=== PATIENT | female | born 1995 | race Caucasian/White ===

== ENCOUNTER 2022-08-21 17:43 | Emergency (ER) | payer OTHER, SELFPAY ==
--- NOTE | ~2022-08-21 | US_ITS ---
EXAMINATION: US right upper quadrant DATE: 08/21/2022 23:54 INDICATION: Right upper quadrant abdominal pain. TECHNIQUE: Multiple grayscale and Doppler ultrasound images of the abdomen were obtained. COMPARISON: None FINDINGS: The pancreatic body is normal in appearance. The pancreatic head and tail are not clearly visualized . Liver has normal echogenicity and contour, with a smooth surface. No liver lesion identified. No in trahepatic biliary duct dilation suspected. Portal venous flow was seen in the hepatopetal, normal di rection and has normal Doppler waveform. The gallbladder is normal in appearance with no wall thicken ing. There is no cholelithiasis. The common bile duct measures 4 mm, which is normal. Sonographic Mu rphy sign was reported as positive by the glass production machine operator. IMPRESSION: 1. Positive sonographic Rowland's. Otherwise normal right upper quadrant ultrasound with no gallbladde r wall thickening or gallstones to more specifically suggest acute cholecystitis. If there is continu ed clinical concern for acute cholecystitis could consider HIDA scan for further evaluation. Reviewed, dictated and finalized at location [facility]. RAL LAW CLERK IMPRESSION: 1. Positive sonographic Rowland's. Otherwise normal right upper quadrant ultraso und with no gallbladder wall thickening or gallstones to more specifically sugg est acute cholecystitis. If there is continued clinical concern for acute john cystitis could consider HIDA scan for further evaluation.
[2022-08-21 18:23] VITALS: BP 138/94; PULSE 106; RESP 20; TEMP 37.6; O2SAT 100
[2022-08-21 18:39] LABS: Basophils Percent Auto 0.4 % (0.2-1.2); Chloride 104 mmol/L (98-107); Eosinophils Absolute Auto 0.1 K/mm3 (0-0.3); Eosinophils Percent Auto 0.7 % (0-4.4); Hematocrit 39.2 % (37.0-47.0); Hemoglobin 12.7 g/dL (12.0-15.0); Immature Granulocyte Absolute 0.02 K/mm3 (0.00-0.031); Immature Granulocyte Percent A 0.3 % (0-0.5); Lymphocytes Absolute Auto 1.02 K/mm3 (0.9-3.2); Lymphocytes Percent Auto 14.3 % (18.3-44.2); Mean Corpuscular HGB Conc 32.4 g/dl (32-36); Mean Corpuscular Hemoglobin 28.5 pg (26-34); Mean Corpuscular Volume 87.9 fl (80-100); Mean Platelet Volume 8.3 fl (7.4-10.4); Monocytes Absolute Auto 0.6 K/mm3 (0.1-0.6); Monocytes Percent Auto 8.6 % (2.6-8.5); Neutrophils Absolute Auto 5.4 K/mm3 (1.3-6.7); Neutrophils Percent Auto 75.7 % (45.5-73.1); Platelet Count Result 405 k/mm3 (150-375); Red Blood Count 4.46 M/mm3 (4.2-5.4); Red Cell Distribution Width 14.6 % (11.5-14.5); White Blood Count 7.1 K/mm3 (4.5-10.0)
[2022-08-21 18:44] LABS: Alanine Aminotransferase 26 U/L (6-35); Albumin Level 4.4 g/dL (3.5-5.1); Alkaline Phosphatase 100 U/L (38-126); Anion Gap 5 mmol/L (8-16); Aspartate Amino Transferase 34 U/L (14-36); Bilirubin,Total 0.4 mg/dL (0.2-1.3); Blood Urea Nitrogen 9 mg/dL (7-17); Calcium 8.5 mg/dL (8.4-10.2); Carbon Dioxide 25 mmol/L (22-30); Estimated CRCL calculation 160 ml/min; Estimated Glomerular Filt Rate > 60; Glucose 91 mg/dL (65-110); Lipase 55 U/L (23-300); Sodium 134 mmol/L (137-145)
[2022-08-21 18:45] LABS: Appearance Urine Slightly Cloudy (Clear); Bilirubin Urine Negative (Negative); Blood Urine Trace-intact (Negative); Color Urine Yellow (Yellow); Glucose Urine UA Negative (Negative); Ketones Urine Negative (Negative); Leukocyte Esterase Ur Negative LEU/UL (Negative); Nitrate Urine Negative (Negative); Protein Urine Negative (Negative); Specific Grav Ur 1.025 (1.001-1.035); Urobilinogen Urine 0.2 mg/dL (<2.0); pH Urine 5.5 (5.0-9.0)
[2022-08-21 19:18] LABS: Mucus Urine Rare /lpf; Squamous Epithelial Cell Urine Occasional /hpf (Few); WBC Urine 0-3 /hpf
[2022-08-21 19:20] LABS: Add Urine Microscopic? YES
[2022-08-21 22:27] VITALS: BP 154/92; PULSE 112; RESP 14; TEMP 37.3; O2SAT 100
--- NOTE | 2022-08-21 23:55 | ED.ABDPAIN ---
HPI - Abdominal Pain General Chief Complaint: Abdominal Pain Stated Complaint: abdominal pain Time Seen by Provider: 08/21/22 22:17 Source: patient Mode of arrival: ambulatory Limitations: no limitations History of Present Illness HPI narrative: This is a 26-year-old female who presents for chief complaint of abdominal pain onset this morning soon after she woke up. States the pain is located in the epigastric area and occasionally radiates inferiorly. Describes the pain as stabbing at its worst it is an 8 out of 10 pain. States she ate a kind bar for breakfast but does not specifically associate the pain with eating. States she was nauseous this morning but did not throw up. Reports regular bowel movements. Denies any urinary symptoms. No history of abdominal surgery. Denies fevers, chills Previously seen in urgent care prior to arrival in the ED who felt that she needed further work-up here. Related Data Allergies Allergy/AdvReac Type Severity Reaction Status Date / Time No Known Allergies Allergy Verified 08/21/22 22:27 Review of Systems Review of Systems: CONSTITUTIONAL: Denies fever, chills, or sweats. EYES: Denies visual changes, redness, or discharge. ENT: Denies rhinorrhea, congestion, sore throat, or otalgia. CARDIOVASCULAR: Denies chest pain, palpitations, or edema. RESPIRATORY: Denies cough or dyspnea. GASTROINTESTINAL: Endorses epigastric abdominal pain, nausea (resolved). denies vomiting, or diarrhea. GENITOURINARY: Denies dysuria or hematuria. Denies pelvic pain. SKIN: Denies rash or itching. MUSCULOSKELETAL: Denies back pain, joint pain, or myalgia. NEUROLOGIC: Denies headache, numbness, dizziness, or weakness. PSYCHIATRIC: Denies anxiety or depression. Exam Narrative: GENERAL: Well-appearing, well-nourished, and in no acute distress. HEAD: Normocephalic, atraumatic. EYES: PERRLA and EOMI. ENT: Nares clear, no rhinorrhea or epistaxis. Mucous membranes moist. Oropharynx without tonsillar hypertrophy exudate or other lesions. NECK: Supple. No adenopathy or masses. CHEST: No respiratory distress. Clear to auscultation. No wheezes rales or rhonchi HEART: Regular rate and rhythm. No murmur heard. Normal peripheral pulses. ABDOMEN: Soft, nondistended, normal active bowel sounds. Tender to palpation in the epigastrium as well as the right upper quadrant. Rowland sign is equivocal. McBurney's point negative. Psoas sign negative. Heeltap negative. EXTREMITIES: Normal range of motion. No edema. SKIN: Warm, dry, no rash. NEURO: Alert and oriented x3. No focal deficits. PSYCH: Normal mood and affect. Course Vital Signs Vital signs: Vital Signs Temperature 99.7 F H 08/21/22 18:23 Pulse Rate 106 H 08/21/22 18:23 Respiratory Rate 20 08/21/22 18:23 Blood Pressure 138/94 H 08/21/22 18:23 Pulse Oximetry 100 08/21/22 18:23 Temperature 99.1 F 08/21/22 22:27 Pulse Rate 112 H 08/21/22 22:27 Respiratory Rate 14 08/21/22 22:27 Blood Pressure 154/92 H 08/21/22 22:27 Pulse Oximetry 100 08/21/22 22:27 MDM - Abdominal Pain MDM Narrative Medical decision making narrative: This is a 26-year-old female who presents for abdominal pain onset this morning. Pain is in the epigastric region. She was seen in urgent care prior to arrival who sent her over to the ED for further evaluation. Lab work is unremarkable. No signs of systemic infection. Right upper quadrant ultrasound was ordered after equivocal Rowland sign. This was negative for acute cholecystitis. Discussed the results of these tests with the patient and shared decision making to forego CT at this point. I feel this is likely due to a viral gastroenteritis. Also considered biliary colic. Will give referral for general surgery. Encouraged to follow-up with PCP. [id number] pain medications discussed. Patient is understanding and agreeable with the plan for discharge Lab Data 08/21/22 18:23 08/21/22 18
[2022-08-22] VITALS: BP 138/97; PULSE 99; RESP 12; O2SAT 100
[2022-08-22 00:49] VITALS: BP 141/84; PULSE 90; RESP 17; O2SAT 100
== END 2022-08-22 00:45 | disposition home or self-care (01) ==
LOC: ANHED 22:46
PROVIDERS: Emergency Medicine; Emergency Provider Physician Assistant; PCP Nurse Practitioner Family
DX: K52.9 Noninfective gastroenteritis and colitis, unspecified (principal)
CPT/HCPCS: 36415; 76705; 80053; 81001; 81025; 83690; 85025; 99284

== ENCOUNTER 2023-05-07 14:06 | Outpatient (CLI) | payer OTHER, SELFPAY ==
[2023-05-07 14:22] LABS: Basophils Absolute Auto 0.1 K/mm3 (0.0-0.1); Basophils Percent Auto 0.6 % (0.2-1.2); Eosinophils Absolute Auto 0.1 K/mm3 (0-0.3); Eosinophils Percent Auto 1.4 % (0-4.4); Hematocrit 37.4 % (37.0-47.0); Hemoglobin 11.8 g/dL (12.0-15.0); Immature Granulocyte Absolute 0.03 K/mm3 (0.00-0.031); Immature Granulocyte Percent A 0.4 % (0-0.5); Lymphocytes Absolute Auto 1.74 K/mm3 (0.9-3.2); Lymphocytes Percent Auto 20.7 % (18.3-44.2); Mean Corpuscular HGB Conc 31.6 g/dl (32-36); Mean Corpuscular Volume 88.6 fl (80-100); Mean Platelet Volume 8.2 fl (7.4-10.4); Monocytes Absolute Auto 0.7 K/mm3 (0.1-0.6); Monocytes Percent Auto 7.9 % (2.6-8.5); Neutrophils Absolute Auto 5.8 K/mm3 (1.3-6.7); Platelet Count Result 447 k/mm3 (150-375); Red Blood Count 4.22 M/mm3 (4.2-5.4); Red Cell Distribution Width 14.6 % (11.5-14.5); White Blood Count 8.4 K/mm3 (4.5-10.0)
[2023-05-07 16:41] LABS: Iron 41 ug/dL (37-170)
[2023-05-07 16:45] LABS: Alanine Aminotransferase 23 U/L (6-35); Albumin Level 4.5 g/dL (3.5-5.1); Alkaline Phosphatase 87 U/L (38-126); Anion Gap 9 mmol/L (8-16); Aspartate Amino Transferase 27 U/L (14-36); Bilirubin,Total 0.4 mg/dL (0.2-1.3); Blood Urea Nitrogen 13 mg/dL (7-17); Calcium 9.3 mg/dL (8.4-10.2); Carbon Dioxide 27 mmol/L (22-30); Chloride 102 mmol/L (98-107); Estimated Glomerular Filt Rate > 60; Glucose 99 mg/dL (65-110); Potassium 3.5 mmol/L (3.4-5.0); Sodium 138 mmol/L (137-145)
[2023-05-07 16:52] LABS: Percent Iron Saturation 11 % (20-50)
[2023-05-07 16:57] LABS: Erythrocyte Sedimentation Rate 16 mm/hr (0-20)
== END 2023-05-07 14:07 | disposition home or self-care (01) ==
LOC: ANHLAB 14:08
PROVIDERS: PCP Nurse Practitioner Family; Visit Provider Internal Medicine Hematology & Oncology
DX: D64.9 Anemia, unspecified (principal)
CPT/HCPCS: 36415; 80053; 82728; 83540; 83550; 85025; 85652; 86140

== ENCOUNTER 2024-07-04 09:49 | Outpatient (CLI) | payer OTHER, SELFPAY ==
--- NOTE | ~2024-07-04 | XR_ITS ---
Left Knee Technique: AP, lateral, and sunrise views were obtained. Clinical History: Injury Findings: No fracture or dislocation is seen. Osseous alignment is anatomic. Joint spaces are preserv ed without degenerative or erosive change. Soft tissues are unremarkable. No joint effusion is seen. Impression: Unremarkable left knee radiographs. Reviewed, dictated and finalized at [facility]. LUBRICATOR Impression: Unremarkable left knee radiographs.
== END 2024-07-04 09:50 | disposition home or self-care (01) ==
PROVIDERS: PCP Physician Assistant; Visit Provider Physician Assistant
DX: S89.92XD Unspecified injury of left lower leg, subsequent encounter (principal); X58.XXXD Exposure to other specified factors, subsequent encounter
CPT/HCPCS: 73562